=== PATIENT | male | born 1955 | race Caucasian/White ===

== ENCOUNTER 2017-06-06 10:33 | Inpatient (IN) | payer OTHER ==
[~2017-06-06] VITALS: Ht 193 cm; Wt 102.1 kg
[2017-06-06] VITALS (30 sets, daily range): BP systolic 100–200; BP diastolic 58–137
[2017-06-06] MEDS ORDERED: ONDANSETRON HCL/PF 4 MG/2 ML VIAL ONE (10:42)
[2017-06-06] MEDS ORDERED: NALOXONE PREFILLED SYRINGE 2 MG/2 ML SYRINGE ONE (10:42)
[2017-06-06 10:57] LABS: BASOPHILS # (AUTO) 0.1 /CMM (0.0-0.2); BASOPHILS % (AUTO) 0.5 % (0.0-2.0); EOSINOPHILS # (AUTO) 0.1 /CMM (0.0-0.7); EOSINOPHILS % (AUTO) 1.4 % (0.0-6.0); HEMATOCRIT 48 % (39-51); HEMOGLOBIN 15.5 g/dL (13.5-17.5); LYMPHOCYTES # (AUTO) 1.4 /CMM (0.8-4.8); LYMPHOCYTES % (AUTO) 13.3 % (20.0-44.0); MEAN CORPUSCULAR HEMOGLOBIN 34 PG (26.0-33.0); MEAN CORPUSCULAR HGB CONC 33 g/dl (31.0-36.0); MEAN CORPUSCULAR VOLUME 104 fL (80-96); MONOCYTES # (AUTO) 1.1 /CMM (0.1-1.30); MONOCYTES % (AUTO) 10.1 % (2.0-12.0); NEUTROPHILS % (AUTO) 74.7 % (43.0-81.0); PLATELET COUNT (AUTO) 227 /CMM (150-450); RDW COEFFICIENT OF VARIATION 16.8 (11.5-15.0); RED BLOOD CELL COUNT(AUTO) 4.58 MIL/uL (4.5-6.0); WHITE BLOOD COUNT (AUTO) 10.7 K/uL (4.3-11.0)
[2017-06-06] MEDS ORDERED: FENTANYL CITRATE IV 1,250 MCG in IV NS 0.9% 250ML IV PRN (11:00)
[2017-06-06] MEDS ORDERED: MIDAZOLAM HCL 100 MG in IV NS 0.9% 80 ML IV PRN (11:00)
[2017-06-06] MEDS ORDERED: ALPR1TAB7 PO (11:00)
[2017-06-06] MEDS ORDERED: IV NS 0.9% 1,000 ML BAG IV ONE (11:00)
[2017-06-06] MEDS ORDERED: ONDANSETRON HCL/PF 4 MG/2 ML VIAL IVP ONE (11:00)
[2017-06-06] MEDS ORDERED: TEST200V3 IM (11:00)
[2017-06-06] MEDS ORDERED: LOSA1TAB39 PO (11:00)
[2017-06-06] MEDS ORDERED: OXYC30TA2 PO (11:00)
[2017-06-06] MEDS ORDERED: MORP30TA PO (11:00)
[2017-06-06] MEDS ORDERED: FENT1PAT6 TD (11:00)
[2017-06-06] MEDS ORDERED: ALBU18HF2 IH (11:00)
[2017-06-06] MEDS ORDERED: GABA-534 PO (11:00)
[2017-06-06] MEDS ORDERED: ERGO50003 PO (11:00)
[2017-06-06] MEDS ORDERED: CYCL5TAB PO (11:00)
[2017-06-06] MEDS ORDERED: PROPOFOL 100 ML IV ONE (11:11)
[2017-06-06 11:13] LABS: CARBON DIOXIDE 32 mmol/L (21-32); CHLORIDE 102 mmol/L (98-107); CREATININE 2.4 mg/dL (0.6-1.3); GLUCOSE 92 mg/dL (74-106); POTASSIUM 4.4 mmol/L (3.5-5.1); SODIUM SERUM 141 mmol/L (136-145); UREA NITROGEN, BLOOD 20 mg/dL (7-18)
[2017-06-06 11:21] LABS: ALANINE AMINOTRANSFERASE 44 U/L (12-78); ALBUMIN 3.4 g/dL (3.4-5.0); ALCOHOL, BLOOD < 3 mg/dL (0-0); ALKALINE PHOSPHATASE 80 U/L (46-116); ASPARTATE AMINOTRANSFERASE 35 U/L (15-37); BILIRUBIN,DIRECT 0.2 mg/dL (0.0-0.2); SERUM AMMONIA 35 umol/L (11-32); TOTAL PROTEIN, SERUM 7.7 g/dL (6.4-8.2); TROPONIN I 0.021 ng/mL (0.00-0.056)
[2017-06-06] MEDS ORDERED: PROPOFOL 100 ML IV PRN (11:30)
[2017-06-06 11:50] LABS: INR 1.09 (0.87-1.13); PROTHROMBIN TIME 11.3 SECS (9.5-12.7)
[2017-06-06 11:53] LABS: APPEARANCE,URINE Clear (CLEAR); BILIRUBIN,URINE Negative (NEGATIVE); BLOOD, URINE Large Ery/uL (NEGATIVE); COLOR,URINE Yellow (YELLOW); KETONES,URINE Negative (NEGATIVE); LEUKOCYTE ESTERASE ,URINE Negative (NEGATIVE); NITRITE, URINE Negative (NEGATIVE); PH,URINE 5.5 (5.0-8.0); PROTEIN,URINE Trace mg/dl (NEGATIVE); UGLUCOSE Negative (NEGATIVE); UROBILINOGEN,URINE 0.2 EU/dL (0.2)
[2017-06-06 12:05] LABS: ABG OXYGEN SATURATION 98.8 % (92.0-98.5); ABG PCO2 57.5 mmHg (35.0-45.0); ABG PH 7.327 (7.350-7.450); ABG PO2 179.8 mmHg (75.0-100.0); AaDO2 475.7 mmHg; COHb 1.3 % (0.5-1.5); MetHb 0.7 % (0.0-1.5); O2Hb 96.8 % (94.0-97.0); PEEP,BG 5 cm H2O; SITE, ABG Right Radial; VT, ABG 550 mL
[2017-06-06 12:31] LABS: RBC,URINE 21-50 /HPF (0-2)
[2017-06-06 12:32] LABS: BACTERIA,URINE Rare /HPF (None Seen); SQUAMOUS EPITHELIAL CELL,UR Few /HPF (None Seen)
[2017-06-06 12:34] LABS: URIC ACID CRYSTALS,URINE Rare /HPF (None Seen)
[2017-06-06] MEDS ORDERED: ETOMIDATE 2 MG/ML VIAL ONE (12:54)
[2017-06-06] MEDS ORDERED: ROCURONIUM BROMIDE 50 MG/5 ML ONE (12:54)
[2017-06-06] MEDS: LOSARTAN POTASSIUM 50 MG TABLET PO SCH (13:00)
[2017-06-06] MEDS ORDERED: MAG HYDROX/AL HYDROX/SIMETH 30 ML UDC PO PRN (13:00)
[2017-06-06] MEDS ORDERED: Medication Not On Formulary EA (Losartan/Hydrochlorothiazide (Losartan-Hctz 100-25 Mg Ta PO SCH (13:00)
[2017-06-06] MEDS: HYDROCHLOROTHIAZIDE 25 MG TABLET PO SCH (13:00)
[2017-06-06] MEDS ORDERED: Z GUARD REMEDY 2 OZ OINT TP PRN (13:00)
[2017-06-06] MEDS ORDERED: MAGNESIUM HYDROXIDE 30 ML UDC PO PRN (13:00)
[2017-06-06] MEDS: IV D5/0.45 NACL 1,000 ML IV PRN (13:33)
[2017-06-06] MEDS: ENOXAPARIN SODIUM 40 MG/0.4 ML DISP.SYRIN SQ SCH (14:25)
[2017-06-06] MEDS: PROPOFOL 100 ML IV PRN ×2 (17:08→23:01)
[2017-06-07] VITALS (43 sets, daily range): BP systolic 117–208; BP diastolic 72–122
[2017-06-07] MEDS: IV D5/0.45 NACL 1,000 ML IV PRN ×2 (02:19→15:04)
[2017-06-07] MEDS: PROPOFOL 100 ML IV PRN ×3 (02:40→09:35)
[2017-06-07 04:38] LABS: BASOPHILS % (AUTO) 0.7 % (0.0-2.0); EOSINOPHILS # (AUTO) 0.2 /CMM (0.0-0.7); EOSINOPHILS % (AUTO) 2.5 % (0.0-6.0); HEMATOCRIT 46 % (39-51); HEMOGLOBIN 14.9 g/dL (13.5-17.5); LYMPHOCYTES # (AUTO) 1.1 /CMM (0.8-4.8); LYMPHOCYTES % (AUTO) 15.9 % (20.0-44.0); MEAN CORPUSCULAR HEMOGLOBIN 34 PG (26.0-33.0); MEAN CORPUSCULAR HGB CONC 33 g/dl (31.0-36.0); MEAN CORPUSCULAR VOLUME 104 fL (80-96); MONOCYTES # (AUTO) 0.7 /CMM (0.1-1.30); MONOCYTES % (AUTO) 9.1 % (2.0-12.0); NEUTROPHILS # (AUTO) 5.2 /CMM (1.8-8.9); NEUTROPHILS % (AUTO) 71.8 % (43.0-81.0); PLATELET COUNT (AUTO) 167 /CMM (150-450); RDW COEFFICIENT OF VARIATION 16.9 (11.5-15.0); RED BLOOD CELL COUNT(AUTO) 4.39 MIL/uL (4.5-6.0); WHITE BLOOD COUNT (AUTO) 7.2 K/uL (4.3-11.0)
[2017-06-07 05:10] LABS: BAND % (MANUAL) 8 % (0.0-5.0); EOSINOPHILS % (MANUAL) 2 % (0-4); LYMPHOCYTES % (MANUAL) 18 % (16-48); MONOCYTES % (MANUAL) 12 % (0-11.0); NEUTROPHILS % (MANUAL) 60 (42-76)
[2017-06-07 05:28] LABS: ALBUMIN 2.7 g/dL (3.4-5.0); BILIRUBIN,TOTAL 0.8 mg/dL (0.2-1.0); CALCIUM, SERUM 8.1 mg/dL (8.5-10.1); CREATININE 2.1 mg/dL (0.6-1.3); PHOSPHORUS 2.9 mg/dL (2.5-4.9); POTASSIUM 3.9 mmol/L (3.5-5.1); TOTAL PROTEIN, SERUM 6.5 g/dL (6.4-8.2)
[2017-06-07 05:36] LABS: MAGNESIUM 1.2 mg/dL (1.8-2.4)
[2017-06-07] MEDS: Magnesium 1GM/D5W 100ML PREMIX 100 ML IV SCH ×4 (07:44→10:40)
[2017-06-07] MEDS: LOSARTAN POTASSIUM 50 MG TABLET PO SCH (08:14)
[2017-06-07] MEDS: HYDROCHLOROTHIAZIDE 25 MG TABLET PO SCH (08:14)
[2017-06-07] MEDS ORDERED: Magnesium 1GM/D5W 100ML PREMIX 100 ML IV SCH (10:30)
[2017-06-07] MEDS ORDERED: hydrALAZINE HCL IV 20 MG VIAL IV PRN (11:00)
[2017-06-07 11:05] LABS: ABG BASE EXCESS 2.5 mmol/L; ABG OXYGEN SATURATION 93.8 % (92.0-98.5); ABG PCO2 43.8 mmHg (35.0-45.0); ABG PH 7.416 (7.350-7.450); AaDO2 163.8 mmHg; COHb 0.8 % (0.5-1.5); MetHb 0.6 % (0.0-1.5); O2Hb 92.5 % (94.0-97.0); SITE, ABG Right Radial; VENT MODE, BG CPAP 5/ PS 10
[2017-06-07] MEDS: MORPHINE SULFATE INJ 2 MG/ML DISP.SYRIN IV PRN ×3 (11:36→20:50)
[2017-06-07] MEDS ORDERED: hydrALAZINE HCL IV 20 MG VIAL IV ONE (12:00)
[2017-06-07] MEDS: CLONIDINE HCL 0.1 MG TABLET PO PRN (13:08)
[2017-06-07] MEDS: HYDROCODONE/APAP 5/325MG 1 EACH TABLET PO PRN (13:09)
[2017-06-07] MEDS: ENOXAPARIN SODIUM 40 MG/0.4 ML DISP.SYRIN SQ SCH (13:10)
[2017-06-07] MEDS: ACETAMINOPHEN 325 MG TABLET PO PRN (14:51)
[2017-06-07] MEDS ORDERED: CEFTRIAXONE 1 G in IV D5W 50 ML IV SCH (20:00)
[2017-06-08] VITALS (24 sets, daily range): BP systolic 136–213; BP diastolic 84–117
[2017-06-08] MEDS: MORPHINE SULFATE INJ 2 MG/ML DISP.SYRIN IV PRN ×7 (01:11→21:51)
[2017-06-08] MEDS: hydrALAZINE HCL IV 20 MG VIAL IV PRN ×2 (03:03→09:15)
[2017-06-08] MEDS: HYDROCODONE/APAP 5/325MG 1 EACH TABLET PO PRN ×2 (03:48→15:42)
[2017-06-08] MEDS: IV D5/0.45 NACL 1,000 ML IV PRN (04:02)
[2017-06-08 05:18] LABS: BASOPHILS # (AUTO) 0.1 /CMM (0.0-0.2); BASOPHILS % (AUTO) 0.6 % (0.0-2.0); EOSINOPHILS # (AUTO) 0.1 /CMM (0.0-0.7); EOSINOPHILS % (AUTO) 1.4 % (0.0-6.0); HEMATOCRIT 48 % (39-51); HEMOGLOBIN 16.1 g/dL (13.5-17.5); LYMPHOCYTES # (AUTO) 1.1 /CMM (0.8-4.8); LYMPHOCYTES % (AUTO) 10.7 % (20.0-44.0); MEAN CORPUSCULAR HEMOGLOBIN 34 PG (26.0-33.0); MEAN CORPUSCULAR HGB CONC 33 g/dl (31.0-36.0); MEAN CORPUSCULAR VOLUME 103 fL (80-96); MONOCYTES # (AUTO) 0.9 /CMM (0.1-1.30); MONOCYTES % (AUTO) 8.4 % (2.0-12.0); NEUTROPHILS # (AUTO) 8.3 /CMM (1.8-8.9); NEUTROPHILS % (AUTO) 78.9 % (43.0-81.0); PLATELET COUNT (AUTO) 193 /CMM (150-450); RDW COEFFICIENT OF VARIATION 16.6 (11.5-15.0); RED BLOOD CELL COUNT(AUTO) 4.69 MIL/uL (4.5-6.0); WHITE BLOOD COUNT (AUTO) 10.5 K/uL (4.3-11.0)
[2017-06-08 05:32] LABS: CALCIUM, SERUM 8.8 mg/dL (8.5-10.1); CREATININE 1.5 mg/dL (0.6-1.3); MAGNESIUM 1.5 mg/dL (1.8-2.4); PHOSPHORUS 3.1 mg/dL (2.5-4.9); POTASSIUM 3.3 mmol/L (3.5-5.1)
[2017-06-08] MEDS: LOSARTAN POTASSIUM 50 MG TABLET PO SCH (08:07)
[2017-06-08] MEDS: HYDROCHLOROTHIAZIDE 25 MG TABLET PO SCH (08:07)
[2017-06-08] MEDS: AMLODIPINE BESYLATE 10 MG TABLET PO SCH (08:07)
[2017-06-08] MEDS: CLONIDINE HCL 0.1 MG TABLET PO PRN (08:08)
[2017-06-08 09:53] LABS: BAND % (MANUAL) 2 % (0.0-5.0); EOSINOPHILS % (MANUAL) 4 % (0-4); LYMPHOCYTES % (MANUAL) 9 % (16-48); MONOCYTES % (MANUAL) 11 % (0-11.0); NEUTROPHILS % (MANUAL) 74 (42-76)
[2017-06-08] MEDS ORDERED: POTASSIUM CHLORIDE 20 MEQ TAB.PRT.SR PO ONE (11:00)
[2017-06-08] MEDS: Magnesium 1GM/D5W 100ML PREMIX 100 ML IV SCH ×2 (11:17→12:23)
[2017-06-08] MEDS: hydrALAZINE HCL 25 MG TABLET PO SCH ×3 (11:23→23:40)
[2017-06-08] MEDS: ACETAMINOPHEN 325 MG TABLET PO PRN (12:51)
[2017-06-08] MEDS: ENOXAPARIN SODIUM 40 MG/0.4 ML DISP.SYRIN SQ SCH (12:53)
[2017-06-08] MEDS ORDERED: AMOXICILLIN TRIHYDRATE 500 MG CAPSULE PO SCH (19:00)
[2017-06-08] MEDS: AMOXICILLIN TRIHYDRATE 250 MG CAPSULE PO SCH (20:41)
[2017-06-08] MEDS: ZOLPIDEM TARTRATE 5 MG TABLET PO PRN (22:25)
[2017-06-09] MEDS: MORPHINE SULFATE INJ 2 MG/ML DISP.SYRIN IV PRN ×8 (00:24→21:51)
[2017-06-09 01:32] VITALS: BP 155/90
[2017-06-09] MEDS: ACETAMINOPHEN 325 MG TABLET PO PRN ×3 (03:04→14:03)
[2017-06-09] MEDS ORDERED: AMOXICILLIN TRIHYDRATE 250 MG CAPSULE ONE (03:57)
[2017-06-09 04:00] VITALS: BP 143/104
[2017-06-09] MEDS: AMOXICILLIN TRIHYDRATE 250 MG CAPSULE PO SCH ×3 (04:00→18:00)
[2017-06-09] MEDS: hydrALAZINE HCL 25 MG TABLET PO SCH ×3 (06:30→17:58)
[2017-06-09 08:00] VITALS: BP 170/107
[2017-06-09] MEDS: ONDANSETRON HCL/PF 4 MG/2 ML VIAL IVP PRN ×2 (08:18→14:03)
[2017-06-09] MEDS: AMLODIPINE BESYLATE 10 MG TABLET PO SCH (08:37)
[2017-06-09] MEDS: HYDROCHLOROTHIAZIDE 25 MG TABLET PO SCH (08:37)
[2017-06-09] MEDS: LOSARTAN POTASSIUM 50 MG TABLET PO SCH (08:38)
[2017-06-09 12:00] VITALS: BP 164/100
[2017-06-09] MEDS: ENOXAPARIN SODIUM 40 MG/0.4 ML DISP.SYRIN SQ SCH (12:44)
[2017-06-09] MEDS: HYDROCODONE/APAP 5/325MG 1 EACH TABLET PO PRN ×2 (14:59→20:41)
[2017-06-09 16:00] VITALS: BP 170/106
[2017-06-09 20:00] VITALS: BP 169/107
[2017-06-09] MEDS: CLONIDINE HCL 0.1 MG TABLET PO PRN (20:41)
[2017-06-09] MEDS: ZOLPIDEM TARTRATE 5 MG TABLET PO PRN (22:51)
[2017-06-10] VITALS: BP 159/102
[2017-06-10] MEDS: hydrALAZINE HCL 25 MG TABLET PO SCH ×3 (00:32→11:51)
[2017-06-10] MEDS: MORPHINE SULFATE INJ 2 MG/ML DISP.SYRIN IV PRN ×4 (00:52→09:59)
[2017-06-10] MEDS: HYDROCODONE/APAP 5/325MG 1 EACH TABLET PO PRN (03:19)
[2017-06-10] MEDS: AMOXICILLIN TRIHYDRATE 250 MG CAPSULE PO SCH ×2 (03:21→11:51)
[2017-06-10 04:00] VITALS: BP 141/95
[2017-06-10 08:00] VITALS: BP_SYST 147; BP_DIAS 101; BP_DIAS 105
[2017-06-10] MEDS: LOSARTAN POTASSIUM 50 MG TABLET PO SCH (08:47)
[2017-06-10] MEDS: AMLODIPINE BESYLATE 10 MG TABLET PO SCH (08:48)
[2017-06-10] MEDS: ACETAMINOPHEN 325 MG TABLET PO PRN (08:48)
[2017-06-10] MEDS: HYDROCHLOROTHIAZIDE 25 MG TABLET PO SCH (08:48)
[2017-06-10 11:51] VITALS: BP 151/106
== END 2017-06-10 13:01 | disposition home or self-care (01) | DRG 812 ==
LOC: ER 10:34 → EDBD 10:34 → ICU 12:03 → TELE1 06-08 17:56
PROVIDERS: ADMIT Internal Medicine; ATTEND Internal Medicine
PROC: 5A1945Z Respiratory Ventilation, 24-96 Consecutive Hours (ICD-10-PCS; principal; 2017-06-06)
PROC: 0BH17EZ Insertion of Endotracheal Airway into Trachea, Via Natural or Artificial Opening (ICD-10-PCS; principal; 2017-06-06)
DX: T40.601A Poisoning by unspecified narcotics, accidental (unintentional), initial encounter (principal); N17.0 Acute kidney failure with tubular necrosis; J96.01 Acute respiratory failure with hypoxia; J96.02 Acute respiratory failure with hypercapnia; G92 Toxic encephalopathy; J69.0 Pneumonitis due to inhalation of food and vomit; Y92.89 Other specified places as the place of occurrence of the external cause; E66.9 Obesity, unspecified; E87.70 Fluid overload, unspecified; I10 Essential (primary) hypertension; G89.4 Chronic pain syndrome; I67.2 Cerebral atherosclerosis; L30.9 Dermatitis, unspecified; L40.9 Psoriasis, unspecified; T42.4X1A Poisoning by benzodiazepines, accidental (unintentional), initial encounter; Y90.0 Blood alcohol level of less than 20 mg/100 ml; F10.99 Alcohol use, unspecified with unspecified alcohol-induced disorder; Z79.899 Other long term (current) drug therapy; Z79.891 Long term (current) use of opiate analgesic; I12.9 Hypertensive chronic kidney disease with stage 1 through stage 4 chronic kidney disease, or unspecified chronic kidney disease; N18.9 Chronic kidney disease, unspecified; I11.9 Hypertensive heart disease without heart failure
CPT/HCPCS: 31720; 36415; 36600; 70450-TC; 71010-TC; 73030-TC; 80048-TC; 80053-TC; 80061-TC; 80076-TC; 80305; 81000-TC; 82140-TC; 82803-TC; 82962-TC; 83605-TC; 83735-TC; 84100-TC; 84484-TC; 85025-TC; 85730-TC; 87040-TC; 87081-TC; 87086-TC; 87186-TC; 94002-TC; 94003-TC; 94799-TC; 99082-TC; A4606; G0480; J0360; J0696; J1650; J2250; J2270; J2310; J2405; J3010; J3475; J3490; J7030; J7042; J7050; J7060; Z7610